=== PATIENT | female | born 1970 | race Caucasian/White ===

== ENCOUNTER 2017-04-10 08:27 | Emergency (ER) | payer MEDICAID ==
[~2017-04-10] VITALS: Ht 167.6 cm; Wt 85.0 kg
[2017-04-10 08:29] VITALS: BP 112/64
== END 2017-04-10 11:02 | disposition left against medical advice (07) ==
LOC: ER 08:43
DX: Z53.21 Procedure and treatment not carried out due to patient leaving prior to being seen by health care provider (principal); F31.9 Bipolar disorder, unspecified; E11.9 Type 2 diabetes mellitus without complications; F20.9 Schizophrenia, unspecified